=== PATIENT | male | born 1940 | race African-American/Black ===

== ENCOUNTER 2017-02-25 11:30 | Emergency (ER) | payer MEDICARE, OTHER ==
[~2017-02-25] VITALS: Ht 175.3 cm; Wt 62.0 kg
[~2017-02-25 11:30] MED LIST: IOHEXOL-300 100 ML BOTTLE ONE; SODIUM CHLORIDE 0.9% 10ML VIAL ONE
[2017-02-25] MEDS ORDERED: SODIUM CHLORIDE 0.9% 2,000 ML IV ONE (11:39)
[2017-02-25 12:10] LABS: BASOPHILS % 0.3 % (0.0-2.0); EOSINOPHILS % 0.7 % (0.0-5.0); HEMATOCRIT. 39.8 % (42.0-52.0); HEMOGLOBIN. 12.9 g/dL (14.0-18.0); LYMPHOCYTES % 10.7 % (20.0-50.0); MEAN CORPUSCULAR HEMOGLOBIN 30.5 pg (28.0-32.0); MEAN CORPUSCULAR VOLUME 94.2 fL (80.0-94.0); MEAN PLATELET VOLUME 9.3 fl (7.4-10.4); MONOCYTES % 6.8 % (2.0-8.0); NEUTROPHILS % 81.5 % (40.0-76.0); PLATELET 142 x1000/uL (130-400); RED BLOOD CELL COUNT 4.22 mill/uL (4.7-6.1); RED CELL DISTRIBUTION WIDTH 14.6 % (11.6-14.6)
[2017-02-25 12:17] LABS: INR 1.2; PROTHROMBIN TIME 12.7 sec (9.4-11.6)
[2017-02-25 12:26] LABS: CARBON DIOXIDE 28 mEq/L (21-32); CHLORIDE 104 mEq/L (98-107); TROPONIN I < 0.02 ng/mL (0.00-0.04)
[2017-02-25 13:45] LABS: CLARITY URINE CLEAR (CLEAR); COLOR URINE YELLOW (YELLOW); GLUCOSE URINE NEGATIVE (NEGATIVE); KETONES URINE NEGATIVE (NEGATIVE); LEUKOCYTE ESTERASE URINE NEGATIVE (NEGATIVE); NITRITE URINE NEGATIVE (NEGATIVE); OCCULT BLOOD URINE NEGATIVE (NEGATIVE); PH URINE 7.5 (4.5-8.0); PROTEIN URINE NEGATIVE (NEGATIVE); UROBILINOGEN URINE 0.2 E.U./dL (0.2-1.0)
[2017-02-25 14:39] LABS: *AMPHETAMINES SCREEN URINE NEGATIVE (NEGATIVE); *BARBITURATES SCREEN URINE NEGATIVE (NEGATIVE); *BENZODIAZEPINES SCREEN URINE NEGATIVE (NEGATIVE); *COCAINE SCREEN URINE NEGATIVE (NEGATIVE); CANNABINOID URINE SCREEN NEGATIVE (NEGATIVE); METHADONE URINE SCREEN NEGATIVE (NEGATIVE); OPIATES URINE SCREEN NEGATIVE (NEGATIVE); PHENCYCLIDINE URINE SCREEN NEGATIVE (NEGATIVE)
[2017-02-25 17:07] VITALS: BP 148/90
== END 2017-02-25 17:30 | disposition left against medical advice (07) ==
LOC: ER 11:36 → EDBEDREQ 13:39 → EDBEDREQTM 13:39 → CANRESERV 16:58 → ENRESERV 16:58 → ER 17:30 → CANBEDREQ 21:42
DX: R55 Syncope and collapse (principal); I95.9 Hypotension, unspecified; R07.89 Other chest pain; R10.9 Unspecified abdominal pain; J44.9 Chronic obstructive pulmonary disease, unspecified
CPT/HCPCS: 36415; 70450; 71010; 74177; 80053; 80305; 81003; 83605; 83690; 83880; 84484; 85025; 85610; 87040; 87086; 93005; 96360; 96361; 99291; A4216; J7030; Q9967

== ENCOUNTER 2022-01-28 15:31 | Emergency (ER) | payer MEDICARE ==
[~2022-01-28] VITALS: Ht 177.8 cm; Wt 70.0 kg
[2022-01-28] MEDS ORDERED: ASPIRIN 81MG TABLET PO ONE (16:00)
[2022-01-28] MEDS ORDERED: ASPIRIN 325MG EC TABLET PO NR (16:00)
[2022-01-28 16:16] LABS: HEMATOCRIT. 42.9 % (42.0-52.0); HEMOGLOBIN. 13.8 g/dL (14.0-18.0); MEAN CORPUSCULAR HEMOGLOBIN 30.9 pg (28.0-32.0); MEAN PLATELET VOLUME 9.8 fl (7.4-10.4); PLATELET 184 x1000/uL (130-400); RED BLOOD CELL COUNT 4.47 mill/uL (4.7-6.1); RED CELL DISTRIBUTION WIDTH 14.4 % (11.6-14.6)
[2022-01-28 16:22] LABS: CHLORIDE 105 mEq/L (98-107)
[2022-01-28] MEDS ORDERED: P20 MT (17:31)
[2022-01-28] MEDS ORDERED: AMOX1TAB16 MT (17:31)
[2022-01-28] MEDS ORDERED: AZIT250T12 MT (17:31)
[2022-01-28] MEDS ORDERED: ALBU90AE INH (17:32)
[2022-01-28 17:53] LABS: PLATELET ESTIMATE NORMAL
[2022-01-28 17:57] VITALS: BP 127/98
== END 2022-01-28 18:01 | disposition home or self-care (01) ==
LOC: ER 15:31
DX: R07.89 Other chest pain (principal); J44.1 Chronic obstructive pulmonary disease with (acute) exacerbation; F32.9 Major depressive disorder, single episode, unspecified; R06.02 Shortness of breath
CPT/HCPCS: 36415; 71045; 80053; 83880; 84484; 85025; 93005; 99285